=== PATIENT | female | born 1945 | race African-American/Black ===

== ENCOUNTER 2018-12-01 07:28 | Inpatient (IN) | payer BC ==
[~2018-12-01] VITALS: Ht 170.2 cm; Wt 59.9 kg
[2018-12-01] MEDS ORDERED: KETOROLAC 30MG/ML VIAL IM ONE (10:30)
[2018-12-01] MEDS ORDERED: DIAZEPAM 5 MG TABLET PO ONE (10:30)
[2018-12-01 11:52] LABS: HEMATOCRIT. 42.2 % (36.0-48.0); HEMOGLOBIN. 13.9 g/dL (12.0-16.0); MEAN CORPUSCULAR HEMOGLOBIN 28.6 pg (28.0-32.0); MEAN CORPUSCULAR VOLUME 86.5 fL (81.0-99.0); MEAN PLATELET VOLUME 8.6 fl (7.4-10.4); PLATELET 437 x1000/uL (130-400); RED BLOOD CELL COUNT 4.88 mill/uL (4.2-5.4)
[2018-12-01 11:53] LABS: CHLORIDE 99 mEq/L (98-107)
[2018-12-01 11:56] LABS: PROTHROMBIN TIME 10.3 sec (9.1-11.1)
[2018-12-01] MEDS ORDERED: DOCUSATE SODIUM 100MG CAPSULE PO ONE (12:00)
[2018-12-01 12:25] LABS: PLATELET ESTIMATE SLIGHTLY INCREASED
[2018-12-01] MEDS ORDERED: MORPHINE SULFATE 2 MG/ML CPJ (NOT FOR IM USE) IV ONE (14:00)
[2018-12-01] MEDS ORDERED: MORPHINE SULFATE 4 MG/ML CPJ (NOT FOR IM USE) IV ONE (14:15)
[2018-12-01 15:00] VITALS: BP 122/74
[2018-12-01 16:00] VITALS: BP 126/69
[2018-12-01] MEDS ORDERED: DIPHENHYDRAMINE 50MG/ML VIAL IV PRN (16:15)
[2018-12-01] MEDS ORDERED: ACETAMINOPHEN 650MG/20.3ML UDC GT PRN (16:15)
[2018-12-01] MEDS ORDERED: MAGNESIUM/ALUMINUM HYDROXIDE/SIMETHICONE 30ML UDC PO PRN (16:15)
[2018-12-01] MEDS ORDERED: ONDANSETRON HCL 4MG/2ML INJ IV PRN (16:15)
[2018-12-01] MEDS ORDERED: GUAIFENESIN 200MG/10ML SUGAR FREE UDC PO PRN (16:15)
[2018-12-01] MEDS ORDERED: CLONIDINE 0.1MG TABLET PO PRN (16:15)
[2018-12-01] MEDS ORDERED: ACETAMINOPHEN 650MG SUPP PR PRN (16:15)
[2018-12-01] MEDS ORDERED: NA PHOS,M-B/NA PHOS,DI-BA ENEMA 118ML PR PRN (16:15)
[2018-12-01] MEDS ORDERED: ACETAMINOPHEN 325MG TABLET PO PRN (16:15)
[2018-12-01] MEDS ORDERED: IPRATROPIUM/ALBUTEROL 0.5-3(2.5)MG/3ML NEB INH PRN (16:15)
[2018-12-01] MEDS ORDERED: HYDROCODONE/ACETAMINOPHEN 5/325MG TABLET PO PRN (16:15)
[2018-12-01] MEDS ORDERED: ATEN-42 MT (18:53)
[2018-12-01] MEDS ORDERED: GABA100C MT (18:53)
[2018-12-01] MEDS ORDERED: HYDR-4001 MT (18:53)
[2018-12-01 20:00] VITALS: BP 121/64
[2018-12-01] MEDS: MORPHINE SULFATE 4 MG/ML CPJ (NOT FOR IM USE) IV PRN (22:13)
[2018-12-01] MEDS: DOCUSATE SODIUM 100MG CAPSULE PO PRN (22:17)
[2018-12-01] MEDS: SODIUM CHLORIDE 0.9% INJ 3ML FLUSH IVF SCH (22:24)
[2018-12-02] VITALS: BP 114/72
[2018-12-02 04:00] VITALS: BP 120/74
[2018-12-02] MEDS: SODIUM CHLORIDE 0.9% INJ 3ML FLUSH IVF SCH ×3 (06:57→23:55)
[2018-12-02 07:33] LABS: BASOPHILS % 0.8 % (0.0-2.0); HEMATOCRIT. 39.1 % (36.0-48.0); HEMOGLOBIN. 12.9 g/dL (12.0-16.0); LYMPHOCYTES % 12.3 % (20.0-50.0); MEAN CORPUSCULAR HEMOGLOBIN 28.3 pg (28.0-32.0); MEAN CORPUSCULAR VOLUME 85.5 fL (81.0-99.0); MEAN PLATELET VOLUME 8.4 fl (7.4-10.4); MONOCYTES % 7.5 % (2.0-8.0); NEUTROPHILS % 78.4 % (40.0-76.0); PLATELET 421 x1000/uL (130-400); RED BLOOD CELL COUNT 4.57 mill/uL (4.2-5.4); RED CELL DISTRIBUTION WIDTH 14.7 % (11.6-14.6)
[2018-12-02 07:46] LABS: CHLORIDE 101 mEq/L (98-107)
[2018-12-02 07:55] LABS: LDL CHOLESTEROL 112 mg/dL (5-100)
[2018-12-02 07:56] LABS: HDL CHOLESTEROL 49 mg/dL (40-59)
[2018-12-02 08:00] VITALS: BP 121/77
[2018-12-02] MEDS ORDERED: ALPRAZOLAM 0.5 MG TABLET PO PRN (09:15)
[2018-12-02] MEDS ORDERED: MEDICATION NOT ON FORMULARY EA (Atenolol 1 TAB) MT SCH (09:15)
[2018-12-02] MEDS ORDERED: MEDICATION NOT ON FORMULARY EA (Gabapentin (Neurontin) 1 CAP) MT SCH (09:15)
[2018-12-02] MEDS ORDERED: HYDROCODONE/ACETAMINOPHEN 5/325MG TABLET PO PRN (09:30)
[2018-12-02] MEDS: ATENOLOL 25MG TABLET PO SCH (09:30)
[2018-12-02] MEDS: MORPHINE SULFATE 4 MG/ML CPJ (NOT FOR IM USE) IV PRN ×2 (10:03→18:44)
[2018-12-02 12:00] VITALS: BP 128/73
[2018-12-02] MEDS ORDERED: AMLO10TA80 PO (14:39)
[2018-12-02] MEDS: GABAPENTIN 100MG CAPSULE PO SCH ×2 (14:53→17:00)
[2018-12-02 15:18] LABS: CLARITY URINE CLOUDY (CLEAR); COLOR URINE DARK YELLOW (YELLOW); KETONES URINE 1+ (NEGATIVE); LEUKOCYTE ESTERASE URINE 3+ (NEGATIVE); NITRITE URINE NEGATIVE (NEGATIVE); OCCULT BLOOD URINE NEGATIVE (NEGATIVE); PH URINE 5.5 (4.5-8.0); PROTEIN URINE NEGATIVE (NEGATIVE); SPECIFIC GRAVITY URINE 1.024 (1.005-1.030)
[2018-12-02 15:45] LABS: *AMPHETAMINES SCREEN URINE NEGATIVE (NEGATIVE); *BARBITURATES SCREEN URINE NEGATIVE (NEGATIVE); *BENZODIAZEPINES SCREEN URINE PRESUMTIVE POSITIVE (NEGATIVE); *COCAINE SCREEN URINE NEGATIVE (NEGATIVE)
[2018-12-02] MEDS: AMLODIPINE 10MG TABLET PO SCH (15:45)
[2018-12-02 15:46] LABS: CANNABINOID URINE SCREEN NEGATIVE (NEGATIVE); METHADONE URINE SCREEN NEGATIVE (NEGATIVE); OPIATES URINE SCREEN PRESUMTIVE POSITIVE (NEGATIVE); PHENCYCLIDINE URINE SCREEN NEGATIVE (NEGATIVE)
[2018-12-02 16:00] VITALS: BP 128/74
[2018-12-02 20:00] VITALS: BP 137/70
[2018-12-02] MEDS: SODIUM CHLORIDE 0.45% 1,000 ML IV SCH (23:55)
[2018-12-03] VITALS: BP 131/78
[2018-12-03] MEDS: DOCUSATE SODIUM 100MG CAPSULE PO PRN (00:05)
[2018-12-03 04:00] VITALS: BP 162/78
[2018-12-03] MEDS: SODIUM CHLORIDE 0.9% INJ 3ML FLUSH IVF SCH ×3 (07:03→22:25)
[2018-12-03 08:00] VITALS: BP 143/83
[2018-12-03] MEDS: GABAPENTIN 100MG CAPSULE PO SCH ×3 (08:31→18:58)
[2018-12-03] MEDS: ATENOLOL 25MG TABLET PO SCH (08:31)
[2018-12-03] MEDS: AMLODIPINE 10MG TABLET PO SCH (08:32)
[2018-12-03] MEDS ORDERED: LACTULOSE 20G/30ML UDC PO SCH (09:00)
[2018-12-03 12:00] VITALS: BP 121/79
[2018-12-03] MEDS: TRAMADOL 50MG TABLET PO PRN ×2 (14:40→22:25)
[2018-12-03] MEDS: SODIUM CHLORIDE 0.45% 1,000 ML IV SCH ×2 (14:41→19:45)
[2018-12-03 16:00] VITALS: BP 108/68
[2018-12-03 20:00] VITALS: BP 113/69
[2018-12-04] VITALS (16 sets, daily range): BP systolic 99–136; BP diastolic 51–69
[2018-12-04] MEDS: SODIUM CHLORIDE 0.9% INJ 3ML FLUSH IVF SCH ×3 (07:20→21:35)
[2018-12-04] MEDS ORDERED: LIDOCAINE HCL 1% 20ML VIAL (Pyxis) INJ ONE (08:45)
[2018-12-04] MEDS ORDERED: SODIUM BICARBONATE 4% (2.4MEQ) 5ML VIAL IV ONE (08:45)
[2018-12-04] MEDS: ATENOLOL 25MG TABLET PO SCH (09:06)
[2018-12-04] MEDS: SODIUM CHLORIDE 0.45% 1,000 ML IV SCH ×2 (09:06→21:31)
[2018-12-04] MEDS: AMLODIPINE 10MG TABLET PO SCH (09:06)
[2018-12-04] MEDS: GABAPENTIN 100MG CAPSULE PO SCH ×3 (09:06→17:00)
[2018-12-04] MEDS: TRAMADOL 50MG TABLET PO PRN (09:18)
[2018-12-04 10:01] LABS: BASOPHILS % 0.5 % (0.0-2.0); EOSINOPHILS % 0.8 % (0.0-5.0); HEMATOCRIT. 40.3 % (36.0-48.0); HEMOGLOBIN. 13.2 g/dL (12.0-16.0); LYMPHOCYTES % 10.3 % (20.0-50.0); MEAN CORPUSCULAR HEMOGLOBIN 28.4 pg (28.0-32.0); MEAN CORPUSCULAR VOLUME 86.4 fL (81.0-99.0); MEAN PLATELET VOLUME 8.1 fl (7.4-10.4); MONOCYTES % 6.7 % (2.0-8.0); NEUTROPHILS % 81.7 % (40.0-76.0); PLATELET 424 x1000/uL (130-400); RED BLOOD CELL COUNT 4.66 mill/uL (4.2-5.4); RED CELL DISTRIBUTION WIDTH 14.7 % (11.6-14.6)
[2018-12-04 10:06] LABS: CHLORIDE 102 mEq/L (98-107)
[2018-12-04 10:14] LABS: PROTHROMBIN TIME 10.3 sec (9.1-11.1)
[2018-12-04] MEDS ORDERED: FENTANYL CITRATE/PF 50MCG/ML 2ML VIAL ONE (10:37)
[2018-12-04] MEDS ORDERED: FENTANYL CITRATE/PF 50MCG/ML 2ML VIAL IV ONE (11:15)
[2018-12-04] MEDS ORDERED: TRAM50TA94 MT (12:32)
[2018-12-04] MEDS: ACETAMINOPHEN WITH CODEINE 300/30MG TABLET PO PRN (21:30)
[2018-12-05] VITALS: BP 109/68
[2018-12-05 04:00] VITALS: BP 110/72
[2018-12-05 08:00] VITALS: BP 123/76
[2018-12-05] MEDS ORDERED: POLYETHYLENE GLYCOL 3350 (17GM) 1 DOSE PACK PO SCH (09:00)
[2018-12-05] MEDS: ACETAMINOPHEN WITH CODEINE 300/30MG TABLET PO PRN ×2 (09:36→15:33)
[2018-12-05] MEDS: DOCUSATE SODIUM 250MG CAPSULE PO SCH ×2 (09:36→17:04)
[2018-12-05] MEDS: AMLODIPINE 10MG TABLET PO SCH (09:36)
[2018-12-05] MEDS: ATENOLOL 25MG TABLET PO SCH (09:37)
[2018-12-05] MEDS: SODIUM CHLORIDE 0.45% 1,000 ML IV SCH (09:37)
[2018-12-05] MEDS: GABAPENTIN 100MG CAPSULE PO SCH ×3 (09:37→17:04)
[2018-12-05] MEDS ORDERED: POLY17PO3 PO (11:37)
[2018-12-05] MEDS ORDERED: DOCU250C14 PO (11:37)
[2018-12-05 12:00] VITALS: BP 105/59
[2018-12-05] MEDS: SODIUM CHLORIDE 0.9% INJ 3ML FLUSH IVF SCH (15:32)
[2018-12-05 16:10] VITALS: BP 105/53
[2018-12-05 17:45] VITALS: BP 105/53
== END 2018-12-05 20:05 | DRG 74 ==
LOC: ER 08:08 → 6EST 11:58 → EDBEDREQ 12:00 → ENRESERV 13:20
PROVIDERS: ADMIT Family Medicine; ATTEND Family Medicine
PROC: 0JBC3ZX Excision of Pelvic Region Subcutaneous Tissue and Fascia, Percutaneous Approach, Diagnostic (ICD-10-PCS; principal; 2018-12-04)
DX: M54.18 Radiculopathy, sacral and sacrococcygeal region (principal); M47.897 Other spondylosis, lumbosacral region; R19.00 Intra-abdominal and pelvic swelling, mass and lump, unspecified site; M47.816 Spondylosis without myelopathy or radiculopathy, lumbar region; I10 Essential (primary) hypertension; G62.9 Polyneuropathy, unspecified; G89.29 Other chronic pain; K59.03 Drug induced constipation; T40.605A Adverse effect of unspecified narcotics, initial encounter; R26.9 Unspecified abnormalities of gait and mobility; F17.210 Nicotine dependence, cigarettes, uncomplicated; Y92.89 Other specified places as the place of occurrence of the external cause
CPT/HCPCS: 36415; 72131; 72148; 77012; 80061; 80305; 88305; 93970; 96374; 96375; 97116; 97161; 97162; 97530; 99285; J1885; J2270; J3010; J3490; J7050